=== PATIENT | female | born 1960 | race Caucasian/White ===

== ENCOUNTER 2019-04-28 10:14 | Day surgery (SDC) | payer OTHER, BC ==
[2019-04-28] MEDS ORDERED: LIDOCAINE 4% SOLUTION 50 ML BTL (11:05)
[2019-04-28] MEDS ORDERED: FENTAnyl 50 MCG/ML VIAL (11:43)
[2019-04-28] MEDS ORDERED: MIDAZOLAM 1 MG/ML 2 ML INJ ×2 (11:43)
== END 2019-04-28 12:21 | disposition home or self-care (01) ==
LOC: GIL 10:14
DX: K29.30 Chronic superficial gastritis without bleeding (principal); K21.0 Gastro-esophageal reflux disease with esophagitis; E11.9 Type 2 diabetes mellitus without complications
CPT/HCPCS: 43239; 82962; 88305; 88312; 88313